=== PATIENT | male | born 1980 | race Caucasian/White ===

== ENCOUNTER 2019-01-01 02:53 | Emergency (ER) | payer SELFPAY ==
[2019-01-01] MEDS ORDERED: Sodium Chloride 0.9% 1,000 ML IV SCH (03:00)
[2019-01-01] MEDS ORDERED: HYDROmorphone 1 MG/ML Syringe IVPUSH ONE ×3 (03:03→05:11)
[2019-01-01] MEDS ORDERED: Metoclopramide 10 MG/2 ML SDV IVPUSH ONE (03:03)
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
[2019-01-01] MEDS ORDERED: Iopamidol 612 MG/ML 100 ML Bottle IVPUSH ONE (03:10)
[2019-01-01] MEDS ORDERED: Sodium Chloride 0.9% 10 ML Syringe FLUSH ONE (03:10)
[2019-01-01] MEDS ORDERED: Diphtheria,Pertussis(Acell),Tetanus Vaccine 0.5 ML Syringe IM ONE (04:22)
[2019-01-01] MEDS ORDERED: HYDROmorphone 1 MG/ML Syringe ONE (05:10)
[2019-01-01] MEDS ORDERED: D5%-0.9% NaCl w/ KCl 40 meq 1,000 ML IV SCH (05:15)
--- NOTE | 2019-01-01 06:58 | CR ---
Left forearm: Two views of the left forearm were obtained. Comparison: No previous forearm study. No fracture or other bony abnormality is seen. Impression: 1. Nothing acute is appreciated on two-view left forearm study. Diagnostic code #1
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
--- NOTE | 2019-01-01 07:17 | CT ---
Head CT Technique: Multiple axial sections through the brain were obtained. Intravenous contrast was not utilized. Comparison: No prior intracranial imaging. Findings: Mild soft tissue swelling is seen within the posterior left scalp. Ventricles along with basal cisterns and sulci over the convexities are within normal limits for the patient's age. No abnormal parenchymal densities are seen. No evidence of intracranial hemorrhage. No midline shift or mass effect is seen. Mild areas of mucosal thickening are seen within the ethmoid sinus and sphenoid sinus which are most likely pre-existing and due to minimal chronic sinusitis. Mastoid sinuses are clear. No acute calvarial abnormality is identified. Impression: 1. Soft tissue swelling to the posterior left scalp. 2. No acute intracranial abnormality is seen. No acute skull fracture. 3. Sinus findings which are believed to be the existing and chronic. Diagnostic code #2
--- NOTE | 2019-01-01 07:17 | CT ---
CT cervical spine Technique: Multiple axial sections were obtained from above C1 inferiorly to the top of T3. Reconstructed sagittal and coronal images were reviewed. Findings: Bilateral facet dislocation is noted at C7-T1. There is associated with anterior subluxation of C7 by approximately 1.1 cm anterior to T1. Fractures are seen within the lamina at C7 on both sides. Spinous process fracture is noted above C6. Old ununited avulsion fracture noted off the tip of the spinous processes of T1. Fracture is noted off the tip of the spinous process of T2 which is most likely acute. Transverse process fracture is noted on the right side at C6 which shows displacement. No additional fracture is seen. Impression: 1. Fractures as noted above. Dislocation of the facets at C7-T1 which likely causes significant cervical cord injury that is not visualized on this study. Diagnostic code #5 I agree with preliminary report from [facility], finalized on 01/01/19, 5:06 AM Central Time
--- NOTE | 2019-01-01 07:17 | CT ---
CT lumbar spine Technique: Multiple axial sections through the lumbar spine were obtained. Reconstructed coronal and sagittal images were obtained. Comparison: No prior lumbar spine imaging. Findings: Vertebral bodies and posterior arches are intact. No fracture is identified within the lumbar spine. Fixation is noted within the right sacroiliac joint. No bony central or bony neural foraminal stenosis is noted. No traumatic disc herniation is seen. Incidental renal cysts and nonobstructing calculi are seen within the left kidney which are mentioned on CT abdomen study. No abnormal subluxation is seen. Impression: 1. Findings which are felt to be incidental as noted above. 2. Nothing acute is appreciated on CT study of the lumbar spine. Diagnostic code #2 I agree with preliminary report from [facility], finalized on 01/01/19, 5:24 AM Central Time
--- NOTE | 2019-01-01 07:17 | CT ---
CT thoracic spine Technique: Multiple axial sections were obtained through the thoracic spine. Reconstructed coronal and sagittal images were obtained. Findings: Dislocated facets again noted at C7-T1 which cause significant subluxation of C7 on T1 and probable cervical spine injury. Other fractures as noted on cervical spine report. Mild superior endplate concavity is seen T3. This appears to be acute. Minimal superior endplate compression fracture noted anteriorly within T2. Spinous process fracture noted of T2 which appears to be acute. T1 spinous process fracture seen which appears to be old. No additional thoracic spine fracture is seen. Prevertebral soft tissue swelling noted within the upper thoracic spine from the cervical spine and thoracic trauma. No bony central or bony neural foraminal stenosis is seen. Impression: 1. Trauma within the lower cervical spine and at the cervical thoracic junction which was described on prior CT cervical spine exam. 2. Spinous process fracture of T2. Minimal endplate fractures within the superior endplates of T2 and T3. Minimal anterior wedging of T3. 3. Soft tissue swelling within the prevertebral soft tissues of the lower cervical spine and upper thoracic spine from the spine trauma. 5. No other acute finding is seen. Diagnostic code #5 I agree with preliminary report from [facility], finalized on 01/01/19, 5:13 AM Central Time
== END 2019-01-01 05:30 ==
LOC: JD.ED 02:53
DX: S22.029A Unspecified fracture of second thoracic vertebra, initial encounter for closed fracture (principal); S12.9XXA Fracture of neck, unspecified, initial encounter; S01.81XA Laceration without foreign body of other part of head, initial encounter; S50.12XA Contusion of left forearm, initial encounter; Z23 Encounter for immunization; W25.XXXA Contact with sharp glass, initial encounter; V68.5XXA Driver of heavy transport vehicle injured in noncollision transport accident in traffic accident, initial encounter
CPT/HCPCS: 36415; 70450; 71260; 72125; 72128; 72131; 73090; 74177; 80053; 80306; 80320; 81001; 82150; 83735; 85007; 85027; 85610; 85730; 90471; 90700; 96361; 96374; 96375; 96376; 99285; J1170; J2765; J3480; J7040; Q9967; G0480